=== PATIENT | male | born 1985 | race Caucasian/White ===

== ENCOUNTER 2017-03-15 22:26 | Emergency (ER) | payer SELFPAY ==
[~2017-03-15] VITALS: Ht 180.3 cm; Wt 70.0 kg
[2017-03-15 22:29] VITALS: BP 121/82; PULSE 120; RESP 16; TEMP 98.7; O2SAT 98
[2017-03-15 23:17] VITALS: BP 106/55; PULSE 100; RESP 18; O2SAT 98
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
== END 2017-03-16 06:20 | disposition home or self-care (01) ==
LOC: NEPE 22:26
DX: S09.90XA Unspecified injury of head, initial encounter (principal); S09.93XA Unspecified injury of face, initial encounter; S16.1XXA Strain of muscle, fascia and tendon at neck level, initial encounter; S30.0XXA Contusion of lower back and pelvis, initial encounter; Y09 Assault by unspecified means
CPT/HCPCS: 70450; 70486; 72125; 72170

== ENCOUNTER 2017-04-23 07:37 | Emergency (ER) | payer SELFPAY ==
[~2017-04-23] VITALS: Ht 180.3 cm; Wt 75.0 kg
[2017-04-23 07:48] VITALS: BP 108/66; RESP 13; TEMP 98.8; O2SAT 99
[2017-04-23] MEDS ORDERED: KETOROLAC TROMETHAMINE 60 MG/2 ML (IM) VIAL IM ONE (08:45)
[2017-04-23] MEDS ORDERED: NAPR500T2 PO (08:59)
[2017-04-23] MEDS ORDERED: CYCL10TA PO (08:59)
--- NOTE | 2017-04-23 08:59 | PD ---
HPI Chief Complaint: Pain: Acute or Chronic Time Seen by Provider: 08:38 Travel History International Travel<30 days: No Contact w/Intl Traveler<30days: No Traveled to known affect area: No History of Present Illness HPI Is a 31-year-old male presents to the emergency department complaining of right leg and groin pain. He states he was doing a lot of working yesterday, up and down, working on his cars, doing some lifting. He woke up today with pain in his groin rating into his inner thigh. He has some pain rating all the way down the leg. All the paresthesias in the foot. He has had back problems are caused radicular leg pain on the other side in the past. No injuries that he knows of. Otherwise has been feeling generally well and healthy. No other complaints. History Past Medical History Medical History: Denies Significant Hx Social History Alcohol Use: No Tobacco Use: Yes (OCCASIONALLY) Allergies-Medications (Allergen,Severity, Reaction): Coded Allergies: No Known Allergies (Unverified , 04/23/17) Reported Meds & Prescriptions Reported Meds & Active Scripts Active No Active Prescriptions or Reported Medications Review of Systems Except as stated in HPI: all other systems reviewed are Neg Physical Exam Narrative GENERAL: Well-appearing 31-year-old man, no acute distress. SKIN: Warm and dry. CARDIOVASCULAR: Warm and well perfused. RESPIRATORY: Normal rate and effort. MUSCULOSKELETAL: No gross deformities. A little bit of pain and tenderness on palpation of the anterior medial thigh, pain with range of motion of the hip, active or passive, worse with active. He is able to bear weight and walk. Strength is full and equal. Sensations intact. NEUROLOGICAL: Awake and alert. No gross deficits. Data Data Last Documented VS Vital Signs Date Time Temp Pulse Resp B/P (MAP) Pulse Ox O2 Delivery O2 Flow Rate FiO2 04/23/17 07:48 98.8 13 108/66 (80) 99 Orders Orders Ketorolac Inj (Toradol Inj) (04/23/17 08:45) [facility] Medical Decision Making Medical Screen Exam Complete: Yes Emergency Medical Condition: Yes Differential Diagnosis Groin strain, cold injury, radiculopathy, other Narrative Course Medical decision making 31-year-old man with groin pain. This is either groin strain or possibly unusual radiculopathy. He looks well. Unilateral. Is no evidence of cord compression or cauda equina. He can walk. Recommend NSAIDs, muscle relaxers if needed. Return for worsening symptoms. Discussed with patient Diagnosis Primary Impression: Groin pain Additional Instructions: Take medications as prescribed. Return to the emergency department for any worsening numbness, tingling, weakness, symptoms in both legs, or any other new or worsening symptoms. Follow with her primary doctor in 1-2 weeks if you are not completely well. Med/Other Pt SpecificInfo: Prescription(s) given Scripts Cyclobenzaprine (Flexeril) 10 Mg Tab 10 MG PO TID for Muscle Spasm, #15 TAB 0 Refills Prov: Trino Suárez MD 04/23/17 Naproxen (Naproxen) 500 Mg Tab 500 MG PO BID, #20 TAB 0 Refills Prov: Trino Suárez MD 04/23/17 Disposition: 01 DISCHARGE HOME Condition: Stable Trino Suárez MD Apr 23, 2017 08:59
== END 2017-04-23 09:33 | disposition home or self-care (01) ==
LOC: NEPC 07:37
DX: R10.30 Lower abdominal pain, unspecified (principal); R20.2 Paresthesia of skin; M79.651 Pain in right thigh; Z72.0 Tobacco use
CPT/HCPCS: 96372; 99283; J1885